=== PATIENT | female | born 1955 | race Caucasian/White ===

== ENCOUNTER 2019-06-15 15:32 | Emergency (ER) | payer OTHER, BC ==
[~2019-06-15] VITALS: Ht 162.6 cm; Wt 74.8 kg
[~2019-06-15 15:32] MED LIST: CELEBREX50 MG PO; CYMBALTA60 MG PO; DOXYCYCLINE 10100 M1 PO; LEVOTHROID88 MCG PO; LIPITOR20 MG PO; NORCO 5-325 TA1 EACH PO; RITALIN LA20 MG PO; SEROQUEL 25 MG25 M2 PO; TRAMADOL 50 MG50 MG PO; WELLBUTRIN XL300 M1 PO
[2019-06-15 17:06] LABS: ABSOLUTE NEUTROPHILS 8.3 thou/uL (1.4-8.2); BASOPHILS 0.7 % (0.0-2.0); EOSINOPHILS 2.1 % (0.0-3.0); HEMATOCRIT 36.7 % (37.0-47.0); HEMOGLOBIN 12.2 gm/dL (12.0-15.0); MCH 29.4 pg (26.0-34.0); MCHC 33.1 g/dL (28.0-37.0); MCV 88.8 fL (80.0-100.0); MONOCYTES 6.6 % (1.0-8.0); PLATELET COUNT 336 thou/uL (150-400); POLYS 70.6 % (36.0-66.0); RBC 4.13 mil/uL (4.20-5.00); RDW 15.8 % (10.5-14.5); WBC 11.8 thou/uL (4.0-11.0)
[2019-06-15 17:19] LABS: ANION GAP 8 mmol/L (7-16); BUN 14 mg/dL (7-18); CALCIUM 9.6 mg/dL (8.5-10.1); CHLORIDE 102 mmol/L (98-107); CO2 29 mmol/L (21-32); CREATININE 1.2 mg/dL (0.6-1.0); GLUCOSE 101 mg/dL (74-106); POTASSIUM 3.5 mmol/L (3.5-5.1); SODIUM 139 mmol/L (136-145)
[2019-06-15] MEDS ORDERED: DEXILANT60 MG PO (17:22)
[2019-06-15] MEDS ORDERED: ASA81BEC PO (17:22)
[2019-06-15] MEDS ORDERED: LAMOTRIGINE250 MG PO (17:23)
[2019-06-15] MEDS ORDERED: LEVO-T100 MCG PO (17:24)
[2019-06-15] MEDS ORDERED: FLONASE 0.05%50 MCG NARES (17:24)
[2019-06-15] MEDS ORDERED: VITAMIN D250000 UNIT PO (17:25)
[2019-06-15 17:27] LABS: ALBUMIN 3.5 g/dL (3.4-5.0); SGOT 16 U/L (15-37); SGPT 19 U/L (30-65); TOTAL BILIRUBIN 0.4 mg/dL (<0.1-1.0); TOTAL PROTEIN 7.2 g/dL (6.4-8.2); TROPONIN-I <0.06 ng/mL (<0.06)
[2019-06-15] MEDS ORDERED: ONDANSETRON HCL4 M2 PO (17:30)
[2019-06-15] MEDS ORDERED: NORCO 5-325 TA1 EAC1 PO (17:30)
[2019-06-15 17:52] VITALS: BP 138/71
--- NOTE | 2019-06-17 12:14 | EKG ---
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
== END 2019-06-15 17:54 | disposition home or self-care (01) ==
LOC: ER 15:32
PROVIDERS: Physician Assistant
DX: S16.1XXA Strain of muscle, fascia and tendon at neck level, initial encounter (principal); S20.219A Contusion of unspecified front wall of thorax, initial encounter; M19.90 Unspecified osteoarthritis, unspecified site; F31.9 Bipolar disorder, unspecified; F17.210 Nicotine dependence, cigarettes, uncomplicated; Z86.73 Personal history of transient ischemic attack (TIA), and cerebral infarction without residual deficits; Z91.013 Allergy to seafood; Z88.6 Allergy status to analgesic agent; V89.2XXA Person injured in unspecified motor-vehicle accident, traffic, initial encounter; Y93.89 Activity, other specified; Y92.89 Other specified places as the place of occurrence of the external cause; Y99.8 Other external cause status